=== PATIENT | male | born 1965 | race Caucasian/White ===

== ENCOUNTER 2016-09-28 13:03 | Emergency (ER) | payer OTHER ==
[2016-09-28 13:16] VITALS: BP 163/104
[2016-09-28] MEDS ORDERED: BENZONATATE 100 MG CAPSULE PO ONE (13:28)
--- NOTE | 2016-09-28 13:29 | ER Document Report ---
HPI - HPI Patient complains to provider of: dental pain Onset: Other - one month ago Quality of pain: Achy Severity: Severe Pain Level: 4 Context: pt presents with dental pain for one month, comes and goes. Worse yesterday at 0900. Made a dental appointment but not scheduled until November 02. Denies f/n/v /d. Tooth is loose, c/o PORTILLO from dental pain. He has tried salt water rinses, took motrin this am without relief of pain. Associated Symptoms: None Exacerbated by: Denies Relieved by: Denies Similar symptoms previously: No Recently seen / treated by doctor: No Past Medical History - General Information source: Patient - Social History Smoking Status: Current Every Day Smoker Cigarette use (# per day): Yes Chew tobacco use (# tins/day): No Frequency of alcohol use: None Drug Abuse: None Occupation: construction Lives with: Family Family History: None, Reviewed & Not Pertinent Patient has suicidal ideation: No Patient has homicidal ideation: No Past Surgical History: Reports: Other - hernia, mastoidectomy - Immunizations Immunizations up to date: Yes Hx Diphtheria, Pertussis, Tetanus Vaccination: Yes Vertical Provider Document - CONSTITUTIONAL Agree With Documented VS: Yes Exam Limitations: No Limitations General Appearance: WD/WN, No Apparent Distress - HEENT HEENT: Atraumatic, Normocephalic Mouth Diagram: 1 - loose tooth, opens mouth wide, clear voice, no induration, no ludwigs. - NECK Neck: Normal Inspection, Supple. negative: Lymphadenopathy-Left, Lymphadenopathy-Right - RESPIRATORY Respiratory: Breath Sounds Normal, No Respiratory Distress O2 Sat by Pulse Oximetry: 97 - CARDIOVASCULAR Cardiovascular: Regular Rate - MUSCULOSKELETAL/EXTREMETIES Musculoskeletal/Extremeties: VICTORIA CESAR - NEURO Level of Consciousness: Awake, Alert, Appropriate Motor/Sensory: No Motor Deficit - DERM Integumentary: Warm, Dry Course - Re-evaluation Re-evalutation: 09/28/16 13:31 high blood pressure reading noted. Pt c/o tooth hurt first and then started having a PORTILLO. denies cp/sob. Does not go to a doctor. Warned of risk of high blood pressure. Instructed on importance of fu. He verbalized understanding. declines narcotics for pain. 09/28/16 13:38 reports tessalon did not help with pain, declines prescription, declines other pain medications, warned again about HTN. - Vital Signs Vital signs: Temp Pulse Resp BP Pulse Ox 98.0 F 81 16 163/104 H 97 09/28/16 13:15 09/28/16 13:15 09/28/16 13:15 09/28/16 13:15 09/28/16 13:15 Discharge - Discharge Clinical Impression: Pain, dental, Elevated blood pressure reading Condition: Stable Disposition: HOME, SELF-CARE Instructions: [facility], Penicillin V K ([facility]), Toothache ([facility]), Family Physicians / Practices Additional Instructions: *You have been evaluated for dental pain *You have an elevated blood pressure reading, please follow up with a primary care provider for evaluation. *Take medications as prescribed *Follow up with the dentist as scheduled *Return to ED for worsening condition, changes, needs Prescriptions: Penicillin V Potassium [Penicillin Vk 500 mg Tablet] 500 mg PO BID #20 tablet Forms: Elevated Blood Pressure, Smoking Cessation Education
== END 2016-09-28 13:40 | disposition home or self-care (01) ==
LOC: ER 13:03
DX: K08.9 Disorder of teeth and supporting structures, unspecified (principal); R03.0 Elevated blood-pressure reading, without diagnosis of hypertension; R51 Headache; F17.210 Nicotine dependence, cigarettes, uncomplicated
CPT/HCPCS: 99282